=== PATIENT | male | born 1985 ===

== ENCOUNTER 2017-07-14 09:17 | Emergency (ER) | payer OTHER ==
[2017-07-14 09:36] VITALS: BMI 21.7
[2017-07-14 09:44] VITALS: BP 111/61; PULSE 63; RESP 18; TEMP 98.1; O2SAT 99
--- NOTE | 2017-07-14 10:50 | RAD ---
PROCEDURE: Left Wrist Radiographs. HISTORY: s/p surgery, last in 2009. ? injury 2 weeks ago COMPARISON: None. FINDINGS: BONES: No acute fracture Status post ORIF with transverse screw for distal radius and ulna. There has been partial resection of the distal ulnar diaphysis. This is unchanged in appearance compared to prior examination. The radiocarpal and intercarpal articulations appear intact. Normal carpal alignment is maintained. JOINTS: As above SOFT TISSUES: Normal. OTHER FINDINGS: None. IMPRESSION: Postoperative changes. No change from 01/24/2014. No acute fracture.
--- NOTE | 2017-07-14 11:55 | C.PDOC ---
History Of Present Illness 31 y/o female with history of multiple writ surgeries secondary to trauma presents to ED with complaints of possible hearing "snap" to left wrist 2 weeks ago. Patient states he has had left wrist pain for 8 years and reports last wrist surgery in 2009. Patient reprots he did not take pain medication and denies numbness, new injury or any other complaints at this time. Chief Complaint (Nursing): Upper Extremity Problem/Injury History Per: Patient History/Exam Limitations: no limitations Onset/Duration Of Symptoms: Days Current Symptoms Are (Timing): Still Present Quality: "Pain" Past Medical History Reviewed: Historical Data, Nursing Documentation, Vital Signs Vital Signs: Last Vital Signs Temp 98.1 F 07/14/17 09:36 Pulse 63 07/14/17 09:36 Resp 18 07/14/17 09:36 BP 111/61 07/14/17 09:36 Pulse Ox 99 07/14/17 12:01 - Medical History PMH: No Chronic Diseases Surgical History: No Surg Hx Family History: States: No Known Family Hx - Social History Hx Tobacco Use: No Hx Alcohol Use: No Hx Substance Use: Yes - Immunization History Hx Tetanus Toxoid Vaccination: No Hx Influenza Vaccination: No Hx Pneumococcal Vaccination: No Review Of Systems Musculoskeletal: Positive for: Hand Pain Skin: Negative for: Rash Neurological: Negative for: Weakness, Numbness Physical Exam - Physical Exam Appears: Non-toxic, No Acute Distress Skin: Warm, Dry, No Rash Head: Atraumatic, Normacephalic Eye(s): bilateral: Normal Inspection Oral Mucosa: Moist Neck: Normal ROM, Supple Extremity: Capillary Refill (<2 seconds), No Deformity, No Swelling, Other ( Left hand well healed surgical scars) Extremity: Left: Limited ROM To Joint (left wrist) Neurological/Psych: Oriented x3, Normal Speech ED Course And Treatment O2 Sat by Pulse Oximetry: 99 (RA) Disposition - Disposition Referrals: [facility], [Non-Staff] - Disposition: HOME/ ROUTINE Disposition Time: 10:10 Condition: GOOD Additional Instructions: Thank you for letting us take care of you today. The emergency medical care you received today was directed at your acute symptoms. If you were prescribed any medication, please fill it and take as directed. It may take several days for your symptoms to resolve. Return to the Emergency Department if your symptoms worsen, do not improve, or if you have any other problems. Please contact your doctor or call one of the physicians/clinics you have been referred to that are listed on the Patient Visit Information form that is included in your discharge packet. Bring any paperwork you were given at discharge with you along with any medications you are taking to your follow up visit. Our treatment cannot replace ongoing medical care by a primary care provider (PCP) outside of the emergency department. Thank you for allowing the [facility] team to be part of your care today. Follow up with your primary care doctor in 2-3 days for re-evaluation and further management. Prescriptions: Ibuprofen [Motrin] 600 mg PO Q6 PRN #20 tab PRN Reason: Pain, Moderate (4-7) Instructions: Wrist Sprain (DC) - Clinical Impression Clinical Impression: UTI (urinary tract infection) - Scribe Statement The provider has reviewed the documentation as recorded by the Dianeibjamaal Mcneal All medical record entries made by the Dianeibjamaal were at my direction and personally dictated by me. I have reviewed the chart and agree that the record accurately reflects my personal performance of the history, physical exam, medical decision making, and the department course for this patient. I have also personally directed, reviewed, and agree with the discharge instructions and disposition.
== END 2017-07-14 10:52 | disposition home or self-care (01) ==
LOC: C.ER 09:17
DX: S63.502A Unspecified sprain of left wrist, initial encounter (principal); X58.XXXA Exposure to other specified factors, initial encounter

== ENCOUNTER 2018-02-16 09:10 | Emergency (ER) | payer MEDICAID, OTHER ==
[2018-02-16 09:11] VITALS: BMI 21.7
[2018-02-16 09:25] VITALS: BP 104/66; PULSE 66; RESP 20; TEMP 98.5; O2SAT 100
[2018-02-16] MEDS ORDERED: cefTRIAXone 250 MG, Water For Injection 20 ML IM ONE (09:43)
--- NOTE | 2018-02-16 09:45 | C.PDOC ---
History Of Present Illness 32 y/o male presents to the ER complaining of urethral discharge with dysuria which has been present for the past 3 days. Patient states that he has 2 sexual partners without protection. Patient denies having fever and chills. Time Seen by Provider: 02/16/18 09:39 Chief Complaint (Nursing): Male Genitourinary History Per: Patient History/Exam Limitations: no limitations Onset/Duration Of Symptoms: Days Current Symptoms Are (Timing): Still Present Severity: Moderate Past Medical History Reviewed: Historical Data, Nursing Documentation, Vital Signs Vital Signs: Last Vital Signs Temp 98.5 F 02/16/18 09:22 Pulse 66 02/16/18 09:22 Resp 20 02/16/18 09:22 BP 104/66 02/16/18 09:22 Pulse Ox 100 02/16/18 09:22 - Medical History PMH: No Chronic Diseases Other Surgeries: Hx of surgeries Family History: States: No Known Family Hx - Social History Hx Tobacco Use: No Hx Alcohol Use: No Hx Substance Use: Yes - Immunization History Hx Tetanus Toxoid Vaccination: No Hx Influenza Vaccination: No Hx Pneumococcal Vaccination: No Review Of Systems Except As Marked, All Systems Reviewed And Found Negative. Constitutional: Negative for: Fever, Chills Genitourinary: Positive for: Dysuria, Other (urethral discharge). Negative for: Hematuria Physical Exam - Physical Exam Appears: Non-toxic, No Acute Distress Skin: Normal Color, Warm, Dry Head: Atraumatic, Normacephalic Eye(s): bilateral: Normal Inspection Nose: Normal Oral Mucosa: Moist Neck: Supple Chest: Symmetrical Gastrointestinal/Abdominal: Normal Exam, Soft, No Tenderness, No Guarding, No Rebound, No Hernia Male Genital: No Testicular Tenderness, No Testicular Swelling, Other (urethral discharge, foreskin intact, no lymphadenopathy, no penile lesions) Neurological/Psych: Oriented x3, Normal Speech ED Course And Treatment O2 Sat by Pulse Oximetry: 100 (RA) Pulse Ox Interpretation: Normal Progress Note: Labs and UA ordered.Patient treated with Zithromax PO and Rocephin IM. Medical Decision Making Medical Decision Making: empiric tx for GC/Chlamydia no penile lesions no inguinal MICHAEL Disposition Doctor Will See Patient In The: Office Counseled Patient/Family Regarding: Studies Performed, Diagnosis - Disposition Referrals: [facility] [Outside] [facility] [Outside] [facility] [Outside] [facility] [Outside] [facility] [Outside] Disposition: HOME/ ROUTINE Disposition Time: 09:45 Condition: GOOD Additional Instructions: you were treated empirically with Rocephin 250 mg IM and Azithromycin 1000 mg by mouth This is COMPLETE treatment for suspected GC/Chlamydia no sexual relations for 1 week Have your sexual partner(s) checked You could get this SAME infection again from an infected partner. outpatient follow-up in our [facility] for further STD eval and tx. ie: Syphilis, HIV, hepatitis Instructions: Chlamydia and Gonorrhea, Urethritis (DC) Forms: [employer] (Slovenian) - Clinical Impression Clinical Impression: Urethritis, unspecified - Scribe Statement The provider has reviewed the documentation as recorded by the Dianeibe Boone [place] Provider Attestation: All medical record entries made by the Scribe were at my direction and personally dictated by me. I have reviewed the chart and agree that the record accurately reflects my personal performance of the history, physical exam, medical decision making, and the department course for this patient. I have also personally directed, reviewed, and agree with the discharge instructions and disposition.
[2018-02-16] MEDS ORDERED: cefTRIAXone (Rocephin) 250 mg Inj IM ONE (10:00)
[2018-02-16 10:04] LABS: URINE BILIRUBIN NEGATIVE (NEGATIVE); URINE BLOOD NEGATIVE (NEGATIVE); URINE CLARITY Clear (Clear); URINE COLOR Yellow (YELLOW); URINE GLUCOSE (UA) NORMAL (Normal); URINE LEUKOCYTE ESTERASE TRACE Leu/uL (Negative); URINE PROTEIN NEGATIVE (NEGATIVE); URINE UROBILINOGEN NORMAL mg/dL (0.2-1.0)
== END 2018-02-16 10:12 | disposition home or self-care (01) ==
LOC: C.ER 09:10
DX: N34.2 Other urethritis (principal)
CPT/HCPCS: 81001; 87086; 87491; 87591; 96372; 99283; J0696